=== PATIENT | female | born 1945 | race Caucasian/White ===

== ENCOUNTER 2018-11-01 12:47 | Outpatient (CLI) | payer MEDICARE, OTHER ==
[2018-11-01 15:26] VITALS: BP 128/0
[2018-11-01] MEDS ORDERED: PREMARIN0.9 MG ORAL (15:26)
[2018-11-01] MEDS ORDERED: ATORVASTATIN CA10 MG ORAL (15:26)
[2018-11-01] MEDS ORDERED: BUPROPION XL300 MG ORAL (15:26)
[2018-11-01] MEDS ORDERED: PROPRANOLOL HCL10 MG ORAL (15:26)
[2018-11-01] MEDS ORDERED: PROTONIX40 MG ORAL (15:26)
[2018-11-01] MEDS ORDERED: SYNTHROID75 MCG ORAL (15:26)
[2018-11-01] MEDS ORDERED: MOBIC7.5 MG ORAL (15:26)
--- NOTE | 2018-11-01 21:30 | Consultation ---
DATE OF CONSULTATION: 11/01/2018 CHIEF COMPLAINT: Referral for colonoscopy, prior history of colon polyps. HISTORY OF PRESENT ILLNESS: This is a very pleasant 73-year-old female with past medical history of colonic polyps, who is now referred to us for colonoscopy. PAST MEDICAL HISTORY: 1. Hypercholesteremia. 2. Multiple colonic polyps. 3. Hypothyroidism. 4. Tremor. 5. Anxiety. 6. Mosquera esophagus. PAST SURGICAL HISTORY: x1, partial hysterectomy, and multiple cosmetic surgeries. MEDICATIONS: Please see the long medication reconciliation list FAMILY HISTORY: No family history of GI malignancies. SOCIAL HISTORY: The patient denies any tobacco, alcohol, or drug abuse. ALLERGIES: To vancomycin and sulfa. PHYSICAL EXAMINATION: GENERAL: This is a well-developed female, in no acute distress. HEENT: Normocephalic and atraumatic. Sclerae anicteric. NECK: Supple. No evidence of obvious lymphadenopathy. CARDIOVASCULAR: Regular rate and rhythm. Plus S1 and S2. No obvious murmur. LUNGS: Clear to auscultation bilaterally. ABDOMEN: Positive bowel sounds. Soft and nontender. No rebound. No guarding. No peritoneal sign. EXTREMITIES: No cyanosis, no clubbing, no edema. ASSESSMENT AND PLAN: The patient is a 73-year-old female with past medical history of multiple colonic polyps, need repeat colonoscopy, which was scheduled for 11/17/2018 per patient request. Stool prep was given to the patient and instruction, she understood and she agreed to it. She also has history of Mosquera's, but according to the patient, she was told by her main gastroenterology, she does not need any endoscopy is anymore and she is "cured." Currently, she is taking PPI b.i.d., we will continue. Consider doing endoscopy later if the patient agrees. I want to thank Dr. Ham for this kind referral. Rakesh Schultz M.D. DR: Araceli JOB#: [id number] CC: Brandi Ham M.D. ([facility] [place] Fax#: [phone]
== END 2018-11-01 14:47 | disposition home or self-care (01) ==
LOC: PAN 12:47
DX: K63.5 Polyp of colon (principal); Z86.010 Personal history of colon polyps; E78.00 Pure hypercholesterolemia, unspecified; E03.9 Hypothyroidism, unspecified; F41.9 Anxiety disorder, unspecified; Z90.710 Acquired absence of both cervix and uterus
CPT/HCPCS: 99202

== ENCOUNTER 2018-11-17 08:03 | Day surgery (SDC) | payer MEDICARE, OTHER ==
[~2018-11-17] VITALS: Ht 160 cm; Wt 60.8 kg
[2018-11-17] VITALS (8 sets, daily range): BP systolic 139–173; BP diastolic 69–86
[~2018-11-17 08:03] MED LIST: ATORVASTATIN CA10 MG ORAL; BUPROPION XL300 MG ORAL; MOBIC7.5 MG ORAL; PREMARIN0.9 MG ORAL; PROPRANOLOL HCL10 MG ORAL; PROTONIX40 MG ORAL; SYNTHROID75 MCG ORAL
[2018-11-17] MEDS ORDERED: Lidocaine 1% MPF 10mg/ml 5ml ONE (10:00)
[2018-11-17] MEDS ORDERED: Propofol 200mg/20ml IV ONE (10:00)
--- NOTE | 2018-11-17 10:00 | Anethesia Preoperative Eval ---
Anesthesia Pre-op PMH/ROS General Date of Evaluation: Nov 17, 2018 Time of Evaluation: 09:55 Anesthesiologist: Cyndy Iqbal CRNA ASA Score: ASA 2 Mallampati Score Class I : Soft palate, uvula, fauces, pillars visible Class II: Soft palate, uvula, fauces visible Class III: Soft palate, base of uvula visible Class IV: Only hard plate visible Mallampati Classification: Class II Surgeon: Marion Diagnosis: colon screening Surgical Procedure: colonoscopy Anesthesia History: none Social History: smoking Family History: no anesthesia problems Allergies: Coded Allergies: VANCOMYCIN (Verified Allergy, Severe, 11/17/18) TCHING SULFA (SULFONAMIDE ANTIBIOTICS) (Verified Allergy, Unknown, 11/17/18) DOES NOT REMEMBER REACTION Uncoded Allergies: SPICY OR HEAVY PERFUMES (Allergy, Severe, 11/17/18) THROAT CLOSES UP Medications: see eMAR Patient NPO?: Yes NPO Date: Nov 17, 2018 NPO Time: 00:00 Past Medical History Cardiovascular: Reports: other - hypercholesterolemia; Denies: HTN, CAD, ND, valve dz, arrhythmia Pulmonary: Denies: asthma, COPD, ONI, other Gastrointestinal/Genitourinary: Reports: other - Cervical CA; Barretts esophagus; Denies: GERD, CRI, ESRD Neurologic/Psychiatric: Reports: depression/anxiety; Denies: dementia, CVA, TIA, other Endocrine: Reports: hypothyroidism HEENT: Reports: other - hypothyroid; Denies: cataract (L), cataract (R), glaucoma, LITTLE SHELL TRIBE (L), LITTLE SHELL TRIBE (R) Hematology/Immune: Denies: anemia, DVT, bleeding disorder, other Musculoskeletal/Integumentary: Reports: OA; Denies: RA, DJD, DDD, edema, other PMH Narrative: as noted above PSxH Narrative: hysterectomy, lumbar spine surgery Anesthesia Pre-op Phys. Exam Physician Exam Last 24 Hour Vital Signs Date Time Temp Pulse Resp B/P (MAP) Pulse Ox O2 Delivery O2 Flow Rate FiO2 11/17/18 10:07 Room Air Constitutional: NAD Neurologic: other - alert and oriented Cardiovascular: RRR Respiratory: CTA Gastrointestinal: S/NT/ND Airway Exam Mallampati Score: Class II MO: full Neck: FROM TMD: > 3 FB ROM: full - FB Teeth: intact Dentures: no upper, no lower Anesthesia Pre-op A/P Studies Pre-op Studies: EKG - SB Risk Assessment & Plan Assessment: ASA 2, ok to proceed Plan: MAC Status Change Before Surgery: No Pre-Antibiotics Given Within 1 Hr of Incision: Cyndy Salguero CRNA Nov 17, 2018 10:00
[2018-11-17] MEDS ORDERED: GLUCOSAMINE PO (10:05)
--- NOTE | 2018-11-17 10:09 | Short Stay Surgery H&P ---
History of Present Illness History of Present Illness Chief Complaint see recent office note HPI Nhung Cruz is a 73 year old female who was admitted on for Colon Screening Patient History Allergies: Coded Allergies: VANCOMYCIN (Verified Allergy, Severe, 11/17/18) TCHING SULFA (SULFONAMIDE ANTIBIOTICS) (Verified Allergy, Unknown, 11/17/18) DOES NOT REMEMBER REACTION Uncoded Allergies: SPICY OR HEAVY PERFUMES (Allergy, Severe, 11/17/18) THROAT CLOSES UP Medication History Scheduled Atorvastatin Calcium* (Lipitor*), 80 MG ORAL BEDTIME, (Reported) Bupropion Hcl* (Wellbutrin*), 300 MG ORAL DAILY, (Reported) Estrogens, Conjugated (Premarin), 0.3 MG ORAL DAILY, (Reported) Gluc Rich/Chondro Rich A/Vit C/Mn (Glucosamine 1,500 Complex Cp), 1 EACH PO DA, ( Reported) Levothyroxine Sodium* (Synthroid*), 50 ORAL DAILY, (Reported) Meloxicam* (Mobic*), Unknown Dose ORAL DAILY, (Reported) Pantoprazole* (Protonix*), 40 MG ORAL DAILY, (Reported) Propranolol Hcl* (Inderal*), Unknown Dose ORAL THREE TIMES A DAY, (Reported) Physical Exam Vital Signs Last Vital Signs Date Time Temp Pulse Resp B/P (MAP) Pulse Ox O2 Delivery O2 Flow Rate FiO2 11/17/18 10:07 Room Air Plan Attestation Are the patient's medical conditions optimized for surgery? Rakesh Schultz MD Nov 17, 2018 10:09
--- NOTE | 2018-11-17 10:09 | Pre-Procedure Note/Attestation ---
Pre-Procedure Note/Attestation Complete Prior to Procedure Planned Procedure: not applicable Procedure Narrative: colonoscopy Indications for Procedure Pre-Operative Diagnosis: screening Attestation I attest that I discussed the nature of the procedure; its benefits; risks and complications; and alternatives (and the risks and benefits of such alternatives ), prior to the procedure, with the patient (or the patient's legal customer care representative). I attest that, if there was a reasonable possibility of needing a blood transfusion, the patient (or the patient's legal customer care representative) was given the [facility] standardized written summary, pursuant to the Keith Belding Blood Safety Act ([place] Health and Safety Code # 1645, as amended). I attest that I re-evaluated the patient just prior to the surgery and that there has been no change in the patient's H&P, except as documented below: Rakesh Schultz MD Nov 17, 2018 10:09
--- NOTE | 2018-11-17 10:39 | Immediate Post-Op Evaluation ---
Immediate Post-Op Evalulation Immediate Post-Op Evalulation Procedure: Colonoscopy with biopsies Date of Evaluation: Nov 17, 2018 Time of Evaluation: 10:49 IV Fluids: 0.9 NS 100 ml Blood Pressure Systolic: 147 Blood Pressure Diastolic: 79 Pulse Rate: 57 Respiratory Rate: 18 O2 Sat by Pulse Oximetry: 99 Temperature (Fahrenheit): 97.2 Pain Score (1-10): 0 Nausea: No Vomiting: No Patient Status: reacts, patent Hydration Status: adequate Given Within 1 Hr of Incision: Cyndy Salguero CRNA Nov 17, 2018 10:39
--- NOTE | 2018-11-17 10:44 | Endoscopy Procedure Note ---
Endoscopy Procedure Note General Indication for Procedure: screening Procedures Performed: colonoscopy Operative Findings/Diagnosis: one polyp Specimen: yes Pt Tolerated Procedure Well: Yes Estimated Blood Loss: none Anesthesia Anesthesiologist: oh Anesthesia: MAC Inserted Devices Implant(s) used?: No Quality Quality of Bowel Preparation: Good Did scope reach the cecum?: Yes Was there any complications?: No GI Core Measures 50 yrs or older w/o bx or poly: No 10yrs. F/U recommended: Yes If not recommended, why?: Above average risk 18 years or older w/prev. colo: Yes <3yrs. since last colonoscopy: No Rakesh Schultz MD Nov 17, 2018 10:44
[2018-11-17] MEDS ORDERED: Hydromorphone 0.5mg/0.5ml inj IVP PRN (11:00)
--- NOTE | 2018-11-17 12:41 | 48 Hour Post Anesthesia Eval ---
Post Anesthesia Evaluation Procedure: Colonoscopy with biopsies Date of Evaluation: Nov 17, 2018 Time of Evaluation: 12:40 Blood Pressure Systolic: 139 0: 69 Pulse Rate: 59 Respiratory Rate: 18 Temperature (Fahrenheit): 97.0 O2 Sat by Pulse Oximetry: 98 Airway: patent Nausea: No Vomiting: No Pain Intensity: 0 Hydration Status: adequate Cardiopulmonary Status: stable Mental Status/LOC: patient returned to baseline Follow-up Care/Observations: per GI Post-Anesthesia Complications: none Follow-up care needed: N/A Cyndy Iqbal CRNA Nov 17, 2018 12:41
--- NOTE | 2018-11-17 16:31 | Cardiology Report ---
APPROVED REPORT EKG Measurement Heart [id number] OR [id number] Sinus bradycardia Otherwise normal ECG
--- NOTE | 2018-11-17 18:45 | Procedure Note ---
DATE OF PROCEDURE: 11/17/2018 SURGEON: Rakesh Schultz M.D. PROCEDURE: Colonoscopy with biopsy. ANESTHESIA: Per Cyndy JEFF. INSTRUMENT: Olympus adult flexible colonoscope. INDICATION: Screening colonoscopy evaluation. The procedure, risks, benefits, and possible consequences, including hemorrhage, aspiration, perforation and infection, and alternative treatments, were explained to the patient/legal guardian by Dr. Rakesh Schultz and the patient/legal guardian understood and accepted these risks. PROCEDURE IN DETAIL: After informed consent was obtained and the patient was adequately sedated, first rectal exam was performed which was positive for internal hemorrhoids. Then, the scope was advanced from the rectum into the cecum documented by appendix orifice, ileocecal valve, and right upper quadrant palpation. Quality of prep was very good. This was a very challenging colonoscopy. We were about to give up on using adult scope and wanted to switch to the upper scope. There was significant diverticulosis in the left colon, narrowing and stricture in that area, most likely from chronic diverticulosis, made this procedure extremely challenging and difficult. The patient had diverticulosis both in the right and left colon, but very significant in the rectosigmoid area. On the way back, we found a small polyp in the rectum, which was biopsied. This was a sessile polyp and measured roughly about 5 mm. Retroflexion of rectum showed evidence of medium-sized nonbleeding internal hemorrhoids. SUMMARY OF FINDINGS: 1. Very challenging colonoscopy secondary to narrowing and diverticulosis in the left colon. 2. Diverticulosis both in the right and left colon. 3. One rectal polyp removed. See above for details. 4. Internal hemorrhoids. RECOMMENDATIONS: 1. Follow up pathology and treat accordingly. 2. We recommend repeat colonoscopy in 5 years. I want to thank Dr. Lori Ham for this kind referral. Rakesh Schultz M.D. DR: MATHIEU JOB#: [id number] CC: Lori Ham M.D.
== END 2018-11-17 12:05 | disposition home or self-care (01) ==
LOC: GAS 08:03
DX: Z12.11 Encounter for screening for malignant neoplasm of colon (principal); K57.90 Diverticulosis of intestine, part unspecified, without perforation or abscess without bleeding; K62.1 Rectal polyp; K64.8 Other hemorrhoids; R00.1 Bradycardia, unspecified; Z88.2 Allergy status to sulfonamides; Z79.899 Other long term (current) drug therapy
CPT/HCPCS: 45380; 93005; J2704; 94003; 94150

== ENCOUNTER 2018-11-30 14:06 | Outpatient (CLI) | payer MEDICARE, OTHER ==
[~2018-11-30 14:06] MED LIST changes: +GLUCOSAMINE PO
--- NOTE | 2018-11-30 14:23 | General Progress Note ---
Assessment/Plan Assessment/Plan: severe diverticulosis mild constipation rectal polyp prn miralax Repeat colon in 5 years Subjective ROS Limited/Unobtainable: Yes Allergies: Coded Allergies: VANCOMYCIN (Verified Allergy, Severe, 11/17/18) TCHING SULFA (SULFONAMIDE ANTIBIOTICS) (Verified Allergy, Unknown, 11/17/18) DOES NOT REMEMBER REACTION Uncoded Allergies: SPICY OR HEAVY PERFUMES (Allergy, Severe, 11/17/18) THROAT CLOSES UP Objective General Appearance: alert EENT: normal ENT inspection Neck: supple Cardiovascular: normal rate Respiratory/Chest: lungs clear Abdomen: normal bowel sounds, non tender, soft Rakesh Schultz MD Nov 30, 2018 14:23
[2018-11-30 15:23] VITALS: BP 114/60
== END 2018-11-30 16:06 | disposition home or self-care (01) ==
LOC: PAN 14:06
DX: K57.90 Diverticulosis of intestine, part unspecified, without perforation or abscess without bleeding (principal); K59.00 Constipation, unspecified; K62.1 Rectal polyp; Z88.2 Allergy status to sulfonamides; Z88.8 Allergy status to other drugs, medicaments and biological substances
CPT/HCPCS: 99212